=== PATIENT | female | born 1965 | race Caucasian/White ===

== ENCOUNTER 2023-12-02 14:43 | Outpatient (AMB) | payer MEDICAID, SELFPAY ==
[2023-12-02 14:56] VITALS: BP 124/72; PULSE 63; O2SAT 94; BMI 37.6
--- NOTE | 2023-12-02 14:56 | MHC.OFFVIS ---
Intake Vital Signs 12/02/23 14:56 Height 4 ft 11 in Weight 186 lb 1.122 oz BMI 37.6 BP 124/72 Blood Pressure Location Rt brachial Position Sitting Pulse 63 Pulse Source Pulse Oximeter Pulse Oximetry (%) 94 Oxygen Delivery Method Room Air Intake Visit Reasons: RA Intake Note: New patient presents today for RA consult. Previously seen [facility] Dr Elias and Zac C/o pain in bl knees right is worse. Occasional pain and swelling in feet and hands. Also reports rash/hives last week that comes and goes, resolved on its own. General Production Manager Required: No Accompanied by: Self / Same As Patient Allergies oxcarbazepine Adverse Reaction (Verified 12/02/23 15:10) Dizziness trazodone Adverse Reaction (Verified 12/02/23 15:10) Lightheadedness Medication List - Last Reconciled 12/02/23 by Taina Dill MD adalimumab (Humira(CF) Pen) 40 mg subcut Q2W albuterol sulfate 90 mcg/actuation 0 mcg inhalation colestipol 1 g PO BID duloxetine 80 mg PO DAILY fluticasone propionate 220 mcg/actuation 1 puff inhalation BID glycopyrrolate 1 mg PO DAILY levothyroxine 88 mcg PO DAILY lisinopril 2.5 mg PO DAILY propranolol 20 mg PO BID quetiapine 25 - 50 mg PO BEDTIME varenicline ea PO HPI HPI Comments History of Present Illness Details This is a 58-year-old female with seropositive RA who presents as a new patient. Her previous lpn instructor left the practice. Per notes, patient was diagnosed with seropositive RA by Dr. Elias in 2014. Per notes patient was on triple therapy but the specifics were not specified. Patient self discontinued her medications around 2018. Started on Humira 2020/2021 with very good control of her RA. Dr. Lam left the practice in 2021 and her PCP has been refilling her Humira. She states that she continues to have intermittent flare-up of her right wrist and hand 2nd MCP. The flare-ups are very few and far in between and they self resolve. She states that she fell on her right knee a few years ago in [place] and was told there was no fracture. She states that recently gets mild knee aching pain. With walking she feels that the kneecap moves too much. She denies any locking, catching, or buckling. Denies any unsteadiness. Denies any knee swelling. She is unaware of any family history of an autoimmune rheumatic disease. Denies any history of DVT/PE. [facility] Medical History (Updated 12/02/23 @ 15:46 by Taina Dill MD) Rheumatoid arthritis Major depressive disorder Bipolar 1 disorder Hypothyroidism Asthma Hypertension Surgical History Hx of section Hx of colonoscopy H/O total hysterectomy Social History Alcohol intake: current Alcohol intake frequency: does not drink Patient Tobacco Use Status: Current everyday Tobacco user Cigarettes Per Day: 0.5 e-Cigarette/Vaping Use: Never Used Current occupation: was always a homemaker Female Reproductive History Menstrual Total pregnancies: 1 Full term: 1 Review of Systems Const Reports weight gain ENT Reports dry mouth Resp Reports wheezing GI Reports heartburn and Reports nausea Musc Reports arthralgias and Reports joint swelling Skin/Breast Reports alopecia, Reports rash and Reports unusual bruising Psych Reports abnormal sleep pattern, Reports anxiety and Reports depression Aller/Immun Reports wheezing Physical Exam Vital Signs: Last Vital Signs Pulse 63 12/02/23 14:56 BP 124/72 12/02/23 14:56 Pulse Ox 94 12/02/23 14:56 Oxygen Delivery Method Room Air 12/02/23 14:56 BMI result Body Mass Index 37.6 Const General: cooperative, healthy appearing and comfortable Nutritional Appearance: obese morbidly obese Orientation/consciousness: patient oriented x3 Limitations: no limitations HEENT Head: Yes normocephalic and Yes atraumatic Mouth: moist mucous membranes Resp Effort & Inspection: normal respiratory effort and able to speak in complete sentences Auscultation: clear to auscultation bilaterally Cardio Rate: regular rate Rhythm: regular rhythm Skin General skin exam: no rashes or lesions noted Neuro General: patient oriented x3 Extrem Other: Mild right 2nd MCP swelling no tenderness No active synovitis otherwise Negative rotator cuff provocative maneuvers bilaterally No knee pain with full flexion-extension bilaterally, no swelling bilaterally Mildly hypermobile kneecap Negative Wilfrido's test bilaterally Normal nailfold capillaroscopy Assessment & Plan Assessment & Plan (1) Seropositive rheumatoid arthritis: Comment: +RF+CCP dx 2014 was on triple therapy unclear which meds. Self DC Humira started around 2020 effective Code(s): M05.9 - Rheumatoid arthritis with rheumatoid factor, unspecified Plan: This is a 58-year-old female with seropositive RA who presents as a new patient for me. Her previous lpn instructor left the practice. Patient is doing well on Humira 40 mg every other week. She has very few flare-ups that are mild and far in between. On exam she has 1 swollen joint. Continue with Humira 40 mg every other week Labs before next visit in 3 months (2) Patellar instability of right knee: Code(s): M25.361 - Other instability, right knee Plan: Patient states that she gets right aching pain as well as increased mobility of her right patella there is no locking, catching, no buckling. No recent trauma. No swelling on exam. I suggested orthopedic evaluation. Patient states that her symptoms are quite mild and she is not interested at this point (3) High risk medication use: Code(s): Z79.899 - Other member of the legislative assembly (current) drug therapy Plan: On Humira started approximately 2020 well-tolerated. Stop Humira for any signs of fever or infection Plan I spent 48 minutes reviewing patient's chart, evaluating patient, ordering diagnostic workup, counseling patient and documenting in the chart Orders: Orders T Spot TB 3 Months Z11.7 - Encounter for testing for latent tuberculosis infection Protein Electrophoresis, Serum 3 Months M06.9 - Rheumatoid arthritis, unspecified Cyclic Citrullinated Peptide 3 Months M06.9 - Rheumatoid arthritis, unspecified Complete Blood Count Auto Diff 3 Months M06.9 - Rheumatoid arthritis, unspecified Comprehensive Met. Panel 3 Months M06.9 - Rheumatoid arthritis, unspecified C Reactive Protein 3 Months M06.9 - Rheumatoid arthritis, unspecified Erythrocyte Sedimentation Rate 3 Months M06.9 - Rheumatoid arthritis, unspecified Hepatitis A,B,C Profile 3 Months Z11.59 - Encounter for screening for other viral diseases Immunofixation Pnl, Serum 3 Months M06.9 - Rheumatoid arthritis, unspecified Rheumatoid Factor 3 Months M06.9 - Rheumatoid arthritis, unspecified Medications: Changed From adalimumab (Humira(CF) Pen) 40 mg subcut Q2W To Humira(CF) Pen (adalimumab) 40 mg (0.4 mL) subcut Q2W 2 ea 2RF NS Coding Level of Care Code New Pt Level 4 (71064) Diagnoses Seropositive rheumatoid arthritis M05.9 Patellar instability of right knee M25.361 High risk medication use Z79.896
== END 2023-12-02 15:37 | disposition home or self-care (01) ==
PROVIDERS: PCP Physician Assistant Medical; Visit Provider Student in an Organized Health Care Education/Training Program
DX: M05.79 Rheumatoid arthritis with rheumatoid factor of multiple sites without organ or systems involvement (principal); M25.361 Other instability, right knee; Z79.899 Other long term (current) drug therapy
CPT/HCPCS: 99204

== ENCOUNTER → 2023-12-02 14:43 | Outpatient (BNVA) | payer MEDICAID, SELFPAY | PROVIDERS: PCP Physician Assistant Medical; Visit Provider Student in an Organized Health Care Education/Training Program | DX: M05.9 Rheumatoid arthritis with rheumatoid factor, unspecified (principal); M25.361 Other instability, right knee; Z79.899 Other long term (current) drug therapy | CPT/HCPCS: 99202 ==

== ENCOUNTER 2024-05-01 14:24 | Outpatient (AMB) | payer MEDICAID, SELFPAY ==
--- NOTE | 2024-05-01 14:51 | MHC.OFFVIS ---
Vital Signs 05/01/24 14:52 Height 4 ft 11 in Weight 188 lb 4.396 oz BMI 38.0 BP 122/72 Blood Pressure Location Lt brachial Position Sitting Pulse 60 Pulse Source Pulse Oximeter Pulse Oximetry (%) 96 Oxygen Delivery Method Room Air Intake Visit Reasons: RA Intake Note: Patient present today for RA follow up visit and labs review. Allergies oxcarbazepine Adverse Reaction (Verified 05/01/24 14:53) Dizziness trazodone Adverse Reaction (Verified 05/01/24 14:53) Lightheadedness Medication List - Last Reconciled 05/01/24 by Taina Dill MD albuterol sulfate 90 mcg/actuation 0 mcg inhalation colestipol 1 g PO BID duloxetine 80 mg PO DAILY duloxetine 20 mg PO DAILY fluticasone propionate 220 mcg/actuation 1 puff inhalation BID glycopyrrolate 1 mg PO DAILY Humira(CF) Pen (adalimumab) 40 mg (0.4 mL) subcut Q2W NS levothyroxine 88 mcg PO DAILY lisinopril 2.5 mg PO DAILY propranolol 20 mg PO BID quetiapine 25 - 50 mg PO BEDTIME varenicline ea PO HPI Comments Details: 59-year-old female with seropositive RA returns for follow-up. She states that her RA has been doing quite well overall, she has rare flare-ups involving different joints. Her main complaint today however is her right elbow pain. Attributed to tennis elbow. It started about 3 weeks ago. She does not recall any specific trauma or overuse. Denies any recent illnesses. Initial history: This is a 58-year-old female with seropositive RA who presents as a new patient. Her previous senior corporate recruiter left the practice. Per notes, patient was diagnosed with seropositive RA by Dr. Elias in 2014. Per notes patient was on triple therapy but the specifics were not specified. Patient self discontinued her medications around 2019. Started on Humira with very good control of her RA. Dr. Lam left the practice in 2021 and her PCP has been refilling her Humira. She states that she continues to have intermittent flare-up of her right wrist and hand 2nd MCP. The flare-ups are very few and far in between and they self resolve. She states that she fell on her right knee a few years ago in [place] and was told there was no fracture. She states that recently gets mild knee aching pain. With walking she feels that the kneecap moves too much. She denies any locking, catching, or buckling. Denies any unsteadiness. Denies any knee swelling. She is unaware of any family history of an autoimmune rheumatic disease. Denies any history of DVT/PE. [facility] Medical History Rheumatoid arthritis Major depressive disorder Bipolar 1 disorder Hypothyroidism Asthma Hypertension Surgical History Hx of section Hx of colonoscopy H/O total hysterectomy Social History Alcohol intake: current Alcohol intake frequency: does not drink Patient Tobacco Use Status: Current everyday Tobacco user Cigarettes Per Day: 0.5 e-Cigarette/Vaping Use: Never Used Current occupation: was always a homemaker Female Reproductive History Menstrual Total pregnancies: 1 Full term: 1 Review of Systems Musc Reports arthralgias and Reports joint swelling Physical Exam Vital Signs: Last Vital Signs Pulse 60 05/01/24 14:52 BP 122/72 05/01/24 14:52 Pulse Ox 96 05/01/24 14:52 Oxygen Delivery Method Room Air 05/01/24 14:52 BMI result Body Mass Index 38.0 Const General: cooperative, healthy appearing and comfortable Nutritional Appearance: obese morbidly obese Orientation/consciousness: patient oriented x3 Limitations: no limitations HEENT Head: Yes normocephalic and Yes atraumatic Resp Effort & Inspection: normal respiratory effort and able to speak in complete sentences Cardio Rate: regular rate Rhythm: regular rhythm Skin General skin exam: no rashes or lesions noted Neuro General: patient oriented x3 Extrem Other: No active synovitis today Normal nailfold capillaroscopy Mild tenderness at the right common extensor origin at the right lateral epicondyle with positive resisted wrist extension test Assessment & Plan Assessment & Plan (1) Seropositive rheumatoid arthritis: Comment: +RF+++CCP dx 2014 was on triple therapy unclear which meds. Self DC Humira started around 2020 effective Code(s): M05.9 - Rheumatoid arthritis with rheumatoid factor, unspecified Category: Medical Plan: This is a 59-year-old female with seropositive RA who presents for follow-up. Doing quite well overall with no active synovitis. She remains on Humira 40 mg every other week. Her symptoms today are due to right tennis elbow. Continue with Humira 40 mg every other week Labs before next visit in 6 months (2) High risk medication use: Code(s): Z79.899 - Other custodial (current) drug therapy Category: Medical Plan: On Humira started approximately 2020 well-tolerated. Stop Humira for any signs of fever or infection (3) Hepatitis C antibody positive in blood: Code(s): R76.8 - Other specified abnormal immunological findings in serum Category: Medical Plan: States that she was found to have positive hepatitis-C antibody in the blood years ago, she does not recall any treatment. She was told that she has cleared the infection Hepatitis-C viral load pending (4) Right tennis elbow: Code(s): M77.11 - Lateral epicondylitis, right elbow Category: Medical Plan: Discussed the nature of tennis elbow. Onset about 3 weeks ago. Patient using an Jarvis wrap. She will start taking ibuprofen prescribed by another provider. Advised patient to call our office if there is no improvement in the coming 3-4 weeks and we will refer to occupational therapy Plan I spent 33 minutes reviewing patient's chart, evaluating patient, ordering diagnostic workup, counseling patient and documenting in the chart Orders: Orders Comprehensive Met. Panel 6 Months M05.9 - Rheumatoid arthritis with rheumatoid factor, unspecified, M25.361 - Other instability, right knee C Reactive Protein 6 Months M05.9 - Rheumatoid arthritis with rheumatoid factor, unspecified, M25.361 - Other instability, right knee Complete Blood Count Auto Diff 6 Months M05.9 - Rheumatoid arthritis with rheumatoid factor, unspecified, M25.361 - Other instability, right knee Erythrocyte Sedimentation Rate 6 Months M05.9 - Rheumatoid arthritis with rheumatoid factor, unspecified, M25.361 - Other instability, right knee Coding Level of Care Code Est Pt Level 5 (49810) Diagnoses Seropositive rheumatoid arthritis M05.9 High risk medication use Z79.899 Hepatitis C antibody positive in blood R76.8 Right tennis elbow M77.11
[2024-05-01 14:52] VITALS: BP 122/72; PULSE 60; O2SAT 96; BMI 38.0
== END 2024-05-01 15:18 | disposition home or self-care (01) ==
PROVIDERS: PCP Physician Assistant Medical; Visit Provider Student in an Organized Health Care Education/Training Program
DX: M05.79 Rheumatoid arthritis with rheumatoid factor of multiple sites without organ or systems involvement (principal); Z79.899 Other long term (current) drug therapy; R76.8 Other specified abnormal immunological findings in serum; M77.11 Lateral epicondylitis, right elbow
CPT/HCPCS: 99214

== ENCOUNTER → 2024-05-01 14:24 | Outpatient (BNVA) | payer MEDICAID, SELFPAY | PROVIDERS: PCP Physician Assistant Medical; Visit Provider Student in an Organized Health Care Education/Training Program | DX: M05.9 Rheumatoid arthritis with rheumatoid factor, unspecified (principal); M77.11 Lateral epicondylitis, right elbow; R76.8 Other specified abnormal immunological findings in serum; Z79.899 Other long term (current) drug therapy | CPT/HCPCS: 99212 ==

== ENCOUNTER 2025-02-16 14:16 | Outpatient (AMB) | payer MEDICAID, SELFPAY ==
[2025-02-16 14:40] VITALS: BP 124/74; PULSE 79; O2SAT 99; BMI 35.3
--- NOTE | 2025-02-16 14:40 | A.OFFVIS_ITS ---
Vital Signs 02/16/25 14:40 Height 4 ft 11 in Weight 174 lb 9.698 oz BMI 35.3 BP 124/74 Blood Pressure Location Lt brachial Position Sitting Pulse 79 Pulse Source Pulse Oximeter Pulse Oximetry (%) 99 Oxygen Delivery Method Room Air Intake Visit Reasons: RA Intake Note: Patient presents for follow up on RA and lab review. Allergies oxcarbazepine Adverse Reaction (Verified 02/16/25 14:44) Dizziness trazodone Adverse Reaction (Verified 02/16/25 14:44) Lightheadedness Medication List - Last Reconciled 02/16/25 by Emi Ayala MD albuterol sulfate 90 mcg/actuation 0 mcg inhalation colestipol 1 g PO BID duloxetine 80 mg PO DAILY duloxetine 20 mg PO DAILY fluticasone propionate 220 mcg/actuation 1 puff inhalation BID glycopyrrolate 1 mg PO DAILY Humira(CF) Pen (adalimumab) 40 mg (0.4 mL) subcut Q2W NS levothyroxine 88 mcg PO DAILY lisinopril 2.5 mg PO DAILY propranolol 20 mg PO BID quetiapine 25 - 50 mg PO BEDTIME varenicline tartrate ea PO HPI Comments Details: Patient is a 59-year-old female with asthma, hypertension, hypothyroidism, depression and seropositive rheumatoid arthritis here today for follow up Interval History: Patient last seen 05/01/[address] Dill. Visit summary - Doing well overall with rare flare ups - Right elbow pain - No changes to medications Today - Doing the same - Knee pain, especially going up and down stairs Rheumatologic History: +RF+++CCP dx 2014 was on triple therapy unclear which meds. Self DC Humira started around 2020 effective Initial history: This is a 58-year-old female with seropositive RA who presents as a new patient. Her previous clinical technologist left the practice. Per notes, patient was diagnosed with seropositive RA by Dr. Elias in 2014. Per notes patient was on triple therapy but the specifics were not specified. Patient self discontinued her medications around 2018. Started on Humira 2020/2021 with very good control of her RA. Dr. Lam left the practice in 2021 and her PCP has been refilling her Humira. She states that she continues to have intermittent flare-up of her right wrist and hand 2nd MCP. The flare-ups are very few and far in between and they self resolve. She states that she fell on her right knee a few years ago in [place] and was told there was no fracture. She states that recently gets mild knee aching pain. With walking she feels that the kneecap moves too much. She denies any locking, catching, or buckling. Denies any unsteadiness. Denies any knee swelling. She is unaware of any family history of an autoimmune rheumatic disease. Denies any history of DVT/PE. Current Rheumatology Medication(s): Humira 40mg SC weekly PFSH Medical History Rheumatoid arthritis Major depressive disorder Bipolar 1 disorder Hypothyroidism Asthma Hypertension Surgical History Hx of section Hx of colonoscopy H/O total hysterectomy Social History Alcohol intake: current Alcohol intake frequency: does not drink Patient Tobacco Use Status: Current everyday Tobacco user Cigarettes Per Day: 0.5 e-Cigarette/Vaping Use: Never Used Current occupation: was always a homemaker Review of Systems Const Details: Review of Systems Constitutional: Denies fever, chills, weight loss ENT: Denies vision changes, eye pain or eye redness, dental caries, dry mouth GI: Denies nausea, vomiting, diarrhea, abdominal pain, change in BM Pulm: Denies SOB, POPE, hemoptysis, wheezing Cards: Denies chest pain, palpitations Skin: Denies Raynaud's, rash, nail changes, photosensitivity, HEARING IMPAIRED TEACHER: Denies headaches, weakness, paresthesias, recurrent falls MSK: as per HPI All other systems reviewed and are unremarkable except noted above Physical Exam Vital Signs: Last Vital Signs Pulse 79 02/16/25 14:40 BP 124/74 02/16/25 14:40 Pulse Ox 99 02/16/25 14:40 Oxygen Delivery Method Room Air 02/16/25 14:40 BMI result Body Mass Index 35.3 Vital signs reviewed Physical Examination CONSTITUITIONAL Patient alert and cooperative. Well appearing and in no apparent painful distress HEENT Conjunctiva and sclera clear. No lymphadenopathy. CHEST/RESPIRATORY SYSTEM Normal respiratory effort and able to speak in complete sentences. Clear to auscultation bilaterally. No crackles, rales, rhonchi, wheezes heard. CARDIAC SYSTEM Regular rate and rhythm. S1 and S2 heard no murmurs. Radial pulses intact bilaterally MSK Hands * Right Hand: Able to make a fist. No swelling or tenderness to palpation of these joints. No deformities noted. * Left Hand: Able to make a fist. No swelling or tenderness to palpation of these joints. No deformities noted. Wrists * Right Wrist: Full ROM. 70 degrees of wrist flexion, 80 degrees of wrist extension. No swelling or TTP * Left Wrist: Full ROM. 70 degrees of wrist flexion, 80 degrees of wrist extension. No swelling or TTP Elbows * Right Elbow: Full ROM. No swelling or TTP. TTP of the lateral epicondyles * Left Elbow: Full ROM. No swelling or TTP. No TTP of the medial and lateral epicondyles Shoulders * Right shoulder: Full ROM. No swelling noted. No TTP of the AC joint, subacromial bursa or posterior shoulder * Left shoulder: Full ROM. No swelling noted. No TTP of the AC joint, subacromial bursa or posterior shoulder Hip bursa: No tenderness to palpation bilaterally Knees * Right knee: Full ROM. No swelling noted. No TTP of the knee joint lie or pes anserine bursa * Left knee: Full ROM. No swelling noted. No TTP of the knee joint lie or pes anserine bursa. * Crepitations felt bilaterally Ankles * Right ankle: Good ankle dorsiflexion and plantar flexion. No swelling. No TTP of the ankle joint * Left ankle: Good ankle dorsiflexion and plantar flexion. No swelling. No TTP of the ankle joint Feet * Right foot: Negative squeeze test * Left foot: Negative squeeze test Tender points? * No tenderness to palpation of the bilateral trapezius, supraspinatus, anterior costochondral junctions, bilateral suboccipital muscle insertions SKIN No rashes Results Reviewed Results Reviewed: [facility] Labs 12/2024 CRP 1.3 ESR 6 Cr/AST/ALT normal Assessment & Plan Assessment & Plan (1) Seropositive rheumatoid arthritis: Comment: +RF+++CCP dx 2015 was on triple therapy unclear which meds. Self DC Humira started around 2020 effective Code(s): M05.9 - Rheumatoid arthritis with rheumatoid factor, unspecified Category: Medical Plan: #Seropositive RA Patient is a 59 y.o. female with seropositive RA currently in remission Plan - Humira 40mg SC every 2 weeks - RTC 6 months - CBC, CMP, ESR, CRP (2) Osteoarthritis of knees, bilateral: Code(s): M17.0 - Bilateral primary osteoarthritis of knee Qualifiers: Osteoarthritis type: primary Qualified Code(s): M17.0 - Bilateral primary osteoarthritis of knee Plan: #Knee OA Patient with bilateral knee OA Plan - XR Bilateral Knees - Given handout about gel injections fro her to consider (3) Encounter for monitoring of adalimumab therapy: Code(s): Z51.81 - Encounter for therapeutic drug level monitoring; Z79.620 - meterman (current) use of immunosuppressive biologic Plan: #Long-term Use of TNF Inhibitors: Humira Discussed with the patient the benefits and risks of TNF inhibitors for the management of the rheumatic condition Benefits include reduce pain, maintenance of remission and reduction of flares as well as progression of the disease Risks include injection sites/infusion reactions, serious infections (such as bacterial infections, opportunistic infections), malignancy, delaminating syndromes, autoimmune phenomena, CHF exacerbations, palmar plantar psoriasis and cytopenias Recommended rotating injection sites, and holding medication during and for up to 1 week after resolution of a febrile illness or open skin wound Plan I spent 33 minutes reviewing the record and labs, taking a history, examining the patient, discussing the treatment plan, ordering diagnostic work up and documenting in the medical record Orders: Orders XR Knee Messi 3V Today M17.0 - Bilateral primary osteoarthritis of knee Complete Blood Count Auto Diff 6 Months M05.9 - Rheumatoid arthritis with rheumatoid factor, unspecified Comprehensive Met. Panel 6 Months M05.9 - Rheumatoid arthritis with rheumatoid factor, unspecified C Reactive Protein 6 Months M05.9 - Rheumatoid arthritis with rheumatoid factor, unspecified Erythrocyte Sedimentation Rate 6 Months M05.9 - Rheumatoid arthritis with rheumatoid factor, unspecified Medications: Refilled Humira(CF) Pen (adalimumab) 40 mg (0.4 mL) subcut Q2W 2 ea 5RF NS M05.9 - Rheumatoid arthritis with rheumatoid factor, unspecified Coding Level of Care Code Est Pt Level 4 (56143) Complex EM visit Add On G2211 Diagnoses Seropositive rheumatoid arthritis M05.9 Primary osteoarthritis of both knees M17.0 Osteoarthritis type: primary Encounter for monitoring of adalimumab therapy Z51.81; Z79.236
== END 2025-02-16 15:11 | disposition home or self-care (01) ==
PROVIDERS: PCP Physician Assistant Medical; Visit Provider Student in an Organized Health Care Education/Training Program
DX: M05.79 Rheumatoid arthritis with rheumatoid factor of multiple sites without organ or systems involvement (principal); M17.0 Bilateral primary osteoarthritis of knee; Z51.81 Encounter for therapeutic drug level monitoring; Z79.620 Long term (current) use of immunosuppressive biologic
CPT/HCPCS: 99214; G2211

== ENCOUNTER 2025-02-16 14:16 | Outpatient (REF) | payer MEDICAID, SELFPAY ==
--- NOTE | ~2025-02-16 | XR_ITS ---
EXAMINATION: XR KNEE 3 VIEWS BILATERAL HISTORY: knee pain COMPARISON: There are no prior studies available for comparison. FINDINGS: Standing AP views of both knees and additional lateral and sunrise patellar views of the bilateral knees are submitted. Osseous mineralization is normal. There is no fracture or dislocation. The joint spaces are preserved. The soft tissues are unremarkable. There is no joint effusion. XR/XR Knee Messi 3V IMPRESSION: Unremarkable examination of the bilateral knees. Electronically signed by: Donn Turk MD 02/19/2025 07:49 AM EDT
== END 2025-02-16 14:17 | disposition home or self-care (01) ==
LOC: HO.XRAY 14:16
PROVIDERS: PCP Physician Assistant Medical; Visit Provider Student in an Organized Health Care Education/Training Program
DX: M17.0 Bilateral primary osteoarthritis of knee (principal); M05.9 Rheumatoid arthritis with rheumatoid factor, unspecified; Z51.81 Encounter for therapeutic drug level monitoring; Z79.620 Long term (current) use of immunosuppressive biologic
CPT/HCPCS: 73562; 99212

== ENCOUNTER → 2025-02-16 15:37 | Outpatient (BNV) | payer MEDICAID, SELFPAY | PROVIDERS: PCP Physician Assistant Medical; Visit Provider Radiology Diagnostic Radiology | DX: M25.561 Pain in right knee (principal); M25.562 Pain in left knee | CPT/HCPCS: 73562 ==